=== PATIENT | male | born 1960 | race Caucasian/White ===

== ENCOUNTER 2016-08-09 11:42 | Emergency (ER) | payer MEDICARE ==
[2013-12-25 06:53] VITALS: BMI 23.6
[~2016-08-09 11:42] MED LIST: BYSTOLIC5 MG PO; COMBIVENT RESPIM4 GM INH; DILAUDID4 MG PO; FLEXERIL10 MG PO; NEURONTIN600 MG PO; NITROSTAT0.4 MG SL; NYSTATIN60 GM TP; OXYCONTIN20 MG PO; OXYCONTIN30 MG PO; REQUIP1 MG PO; SYNTHROID50 MCG PO
[2016-08-09 12:41] LABS: BASOPHILS 0.7 % (0.0-2.0); EOSINOPHILS 0.7 % (0-7); HEMATOCRIT 42.7 % (42.0-54.0); HEMOGLOBIN 14.6 g/dL (13.5-17.5); IMMATURE GRANULOCYTES 0.2 % (0-5); LYMPHOCYTES 29.7 % (15-50); MCHC 34.2 g/dL (31.0-37.0); MCV 99.5 fL (80.0-100.0); MEAN PLATELET VOLUME 9.5 fL (7.4-10.4); NEUTROPHILS 61.7 % (40-80); PLATELET COUNT 259 10x3/uL (130-400); RBC 4.29 10x6/uL (4.20-6.10); RDW 14.4 % (11.5-14.5); WBC 5.6 10x3/uL (4.8-10.8)
[2016-08-09 12:55] LABS: ALBUMIN 4.2 g/dL (3.4-5.0); ANION GAP 11.2 mmol/L (8-16); BILIRUBIN - TOTAL 0.74 mg/dL (0.2-1.3); CALCIUM 9.7 mg/dL (8.5-10.1); CARBON DIOXIDE 31.1 mmol/L (21.0-32.0); CREATININE - SERUM 1.1 mg/dL (0.6-1.3); POTASSIUM - SERUM 4.3 mmol/L (3.5-5.1); PROTEIN - SERUM 7.8 g/dL (6.4-8.2)
[2016-08-10] MEDS ORDERED: ROXICODONE15 MG PO (14:03)
[2016-08-10] MEDS ORDERED: MORPHINE SULFAT15 M4 PO (14:04)
== END 2016-08-09 17:08 | disposition home or self-care (01) ==
LOC: D.ER 11:42
PROVIDERS: Family Medicine
DX: J20.9 Acute bronchitis, unspecified (principal); J45.909 Unspecified asthma, uncomplicated; I10 Essential (primary) hypertension; F17.200 Nicotine dependence, unspecified, uncomplicated

== ENCOUNTER 2016-08-10 10:05 | Outpatient (CLI) | payer MEDICARE ==
[~2016-08-10] VITALS: Ht 170.2 cm; Wt 63.6 kg
[2016-08-10] MEDS ORDERED: ROXICODONE15 MG PO (14:03)
[2016-08-10] MEDS ORDERED: MORPHINE SULFAT15 M4 PO (14:04)
[2016-08-10 14:09] VITALS: BP 136/79; Ht 170.2 cm; Wt 63.6 kg
--- NOTE | 2016-08-10 14:42 | NUR ---
1345- PT ARRIVED VIA WHEELCHAIR FROM EMERGENCY DEPT 1420- SOAP SUDS ENEMA ADMINISTERED WITH SOME LEAKAGE, PT TOLERATING. INFORMED HIM TO REMAIN ON HIS LEFT SIDE AND TO HOLD IN ENEMA SUBSTANCE FOR LONG HE CAN TOLERATE IT. WILL MONITOR. BEDSIDE COMMODE IN ROOM FOR EASY ACCESS TO FACILITIES DUE TO ACCESSED FALL RISK.
--- NOTE | 2016-08-10 15:18 | NUR ---
1445- PT UP OOB TO BEDSIDE COMMODE, BROWN LIQUID WITH FORMED SOFT STOOL WELL. REPORTS CRAMPING. PT UP OOB AGAIN WITH BOUT OF INCONTINENCE, BACK TO BED AFTER CLEANED UP, HAD PT RELAX IN BED.WILL MONITOR. 1515- SOAP SUDS ENEMA ADMINISTERED, PT TOLERATED. WILL CONTINUE TO MONITOR.
--- NOTE | 2016-08-10 16:08 | NUR ---
1550- DISCHARGE INSTRUCTIONS COMPLETED, PT VERBALIZED UNDERSTANDING, PAPERWORK SIGNED. 1605- DISCHARGED VIA WHEELCHAIR WITH [facility].
== END 2016-08-10 16:13 | disposition home or self-care (01) ==
LOC: D.ER 10:05 → D.OPS 10:05 → EDSTATUS 13:30 → D.OPS 16:13
DX: K59.00 Constipation, unspecified (principal); K56.41 Fecal impaction; F17.200 Nicotine dependence, unspecified, uncomplicated

== ENCOUNTER → 2016-08-16 15:03 | Outpatient (CLI) | payer MEDICARE ==
[2016-08-10 14:09] VITALS: BMI 21.9
[~2016-08-16 15:03] MED LIST changes: +MORPHINE SULFAT15 M4 PO; +ROXICODONE15 MG PO
== END | disposition home or self-care (01) ==
LOC: D.MRI 08-10 12:00
DX: M54.16 Radiculopathy, lumbar region (principal)